=== PATIENT | female | born 1965 | race Caucasian/White ===

== ENCOUNTER 2019-05-28 10:41 | Emergency (ER) | payer OTHER ==
--- NOTE | 2019-05-28 10:57 | ER Document Report ---
ED Medical Screen (RME) - General Chief Complaint: Lower Abdominal Pain Stated Complaint: LOWER ABDOMINAL PAIN Time Seen by Provider: 05/28/19 10:52 Mode of Arrival: Ambulatory Information source: Patient Notes: 54-year-old female presented to ED for complaint of a sharp stabbing pain to the right lower quadrant for the last 3 days constantly. She states sometimes it does get worse but it is a constant pain. She states she has not had any fever or nausea or vomiting she usually has 2 stools a day but she is only been having 1 stool a day. Does have a history of hypoactive thyroid and depression she does have her gallbladder removed and a bilateral tubal ligation. She rarely drinks smokes about 6 cigarettes a day and does not use any illicit drugs. She is alert oriented respirations regular nonlabored speaking in full sentences. Abdomen is tender to palpation on right lower quadrant. Bowel sounds are active. I have greeted and performed a rapid initial assessment of this patient. A comprehensive ED assessment and evaluation of the patient, analysis of test results and completion of medical decision making process will be conducted by an additional ED providers. Physical Exam - Vital signs Vitals: Temp Pulse Resp BP Pulse Ox 97.5 F 66 16 131/57 H 98 05/28/19 10:45 05/28/19 10:45 05/28/19 10:45 05/28/19 10:45 05/28/19 10:45 Course - Vital Signs Vital signs: Temp Pulse Resp BP Pulse Ox 97.5 F 66 16 131/57 H 98 05/28/19 10:45 05/28/19 10:45 05/28/19 10:45 05/28/19 10:45 05/28/19 10:45
[2019-05-28 11:30] LABS: ABSOLUTE BASOPHILS # (AUTO) 0.1 10^3/uL (0.0-0.2); ABSOLUTE EOSINOPHILS # (AUTO) 0.2 10^3/uL (0.0-0.6); ABSOLUTE LYMPHOCYTES (AUTO) 1.3 10^3/uL (0.5-4.7); ABSOLUTE MONOCYTES (AUTO) 0.5 10^3/uL (0.1-1.4); BASOPHILS % (AUTO) 0.9 % (0-2); HEMATOCRIT 41.7 % (36.0-47.0); LYMPHOCYTES % (AUTO) 20.9 % (13-45); MEAN CORPUSCULAR HEMOGLOBIN 28.6 pg (27.0-33.4); MEAN CORPUSCULAR HGB CONC 33.7 g/dL (32.0-36.0); MEAN CORPUSCULAR VOLUME 85 fl (80-97); MONOCYTES % (AUTO) 8.8 % (3-13); PLATELET COUNT 279 10^3/uL (150-450); SEGMENTED NEUTROPHILS % (AUTO) 66.4 % (42-78); TOTAL CELLS COUNTED % (AUTO) 100 %; WHITE BLOOD COUNT 6.1 10^3/uL (4.0-10.5)
[2019-05-28 11:48] LABS: ALBUMIN 4.1 g/dL (3.5-5.0); ALKALINE PHOSPHATASE 71 U/L (38-126); ANION GAP 6 (5-19); ASPARTATE AMINO TRANSFERASE 20 U/L (14-36); BILIRUBIN,DIRECT 0.1 mg/dL (0.0-0.4); BILIRUBIN,TOTAL 0.5 mg/dL (0.2-1.3); BLOOD UREA NITROGEN 14 mg/dL (7-20); CALCIUM 9.5 mg/dL (8.4-10.2); CARBON DIOXIDE 28 mmol/L (22-30); CHLORIDE 107 mmol/L (98-107); GLUCOSE 92 mg/dL (75-110); POTASSIUM 4.7 mmol/L (3.6-5.0); TOTAL PROTEIN 7.2 g/dL (6.3-8.2)
[2019-05-28 11:49] LABS: APPEARANCE,URINE CLEAR; BILIRUBIN,URINE NEGATIVE (NEGATIVE); COLOR,URINE YELLOW; GLUCOSE, URINE NEGATIVE (NEGATIVE); KETONES,URINE NEGATIVE (NEGATIVE); PROTEIN,URINE NEGATIVE (NEGATIVE); URINE SPECIFIC GRAVITY 1.005; UROBILINOGEN,URINE NEGATIVE mg/dL (<2.0)
--- NOTE | 2019-05-28 12:48 | ER Document Report ---
ED General - General Chief Complaint: Abdominal Pain Stated Complaint: LOWER ABDOMINAL PAIN Time Seen by Provider: 05/28/19 10:52 Primary Care Provider: ROBERT OLIVAS [Primary Care Provider] - Follow up in 1 week Mode of Arrival: Ambulatory Information source: Patient Notes: 54-year-old female presents emergency department with complaints of right lower quad abdominal pain since Monday. Reports her right side hurts all the time but she experiences episodes of sharp pain. Reports she is been eating and drinking as normal. Denies fever and vomiting being but reports diarrhea since Monday. Reports her stool was soft this morning. reports she was very pale this morning. - HPI Onset: Other - monday Onset/Duration: Persistent Quality of pain: Achy, Sharp Associated symptoms: Diarrhea Exacerbated by: Denies Relieved by: Denies Similar symptoms previously: No Recently seen / treated by doctor: No - Related Data Allergies/Adverse Reactions: No Known Allergies Allergy (Unverified 05/28/19 13:45) Past Medical History - General Information source: Patient Last Menstrual Period: Menopause for the past 2 years - Social History Smoking Status: Current Every Day Smoker Frequency of alcohol use: None Drug Abuse: None Lives with: Family Family History: None Patient has suicidal ideation: No Patient has homicidal ideation: No Endocrine Medical History: Reports: Hx Hypothyroidism Psychiatric Medical History: Reports: Hx Depression Past Surgical History: Reports: Hx Cholecystectomy, Hx Tonsillectomy, Hx Tubal Ligation Review of Systems - Review of Systems Notes: Review HPI for review of systems., All other systems negative Physical Exam - Vital signs Vitals: Temp Pulse Resp BP Pulse Ox 97.5 F 66 16 131/57 H 98 05/28/19 10:45 05/28/19 10:45 05/28/19 10:45 05/28/19 10:45 05/28/19 10:45 - Notes Notes: PHYSICAL EXAMINATION: GENERAL: Well-appearing and in no acute distress HEAD: Atraumatic, normocephalic. EYES: Pupils equal round and reactive to light, extraocular movements intact, sclera anicteric, conjunctiva are normal. ENT: nares patent, oropharynx clear without exudates. Moist mucous membranes. NECK: Normal range of motion, supple without lymphadenopathy LUNGS: CTAB and equal. No wheezes rales or rhonchi. HEART: Regular rate and rhythm without murmurs ABDOMEN: Soft, RLQ tenderness. No guarding, no rebound BACK: Denies flank pain EXTREMITIES: Normal range of motion, no pitting edema. NEUROLOGICAL: Cranial nerves grossly intact. Normal sensory/motor exams. PSYCH: Normal mood, normal affect. SKIN: Warm, Dry, normal turgor, no rashes or lesions noted Course - Re-evaluation Re-evalutation: 05/28/19 12:46 54-year-old female presents emergency department with complaints of right lower quad abdominal pain that started on Monday. Reports constant ache with episodes of sharp pain. Reports she is been eating drinking as normal. Denies fever vomiting reports some diarrhea. Reports last stool this morning was soft. Labs unremarkable. 05/28/19 13:51 Labs unremarkable UA negative CT unremarkable. Patient was instructed on diarrhea [id number] antidiarrhea medication. She was instructed on the [facility] and return to ED for concerns. Verbalized understanding to all instructions. Patient looks nontoxic smiles and laughs easily. Abdomen/Pelvis CT 05/28/19 12:42 IMPRESSION: 1. No acute CT findings of the abdomen or pelvis to explain right lower quadrant abdominal pain. Normal appendix. 2. Status post cholecystectomy. 05/28/19 20:01 Dictation of this chart was performed using voice recognition software; therefore, there may be some unintended grammatical errors. - Vital Signs Vital signs: Temp Pulse Resp BP Pulse Ox 98.0 F 62 18 115/68 96 05/28/19 14:09 05/28/19 14:09 05/28/19 14:09 05/28/19 14:09 05/28/19 14:09 - Laboratory Result Diagrams: 05/28/19 11:06 05/28/19 11:06 Laboratory results interpreted by me: 05/28/19 11:25 Urine Blood SMALL H - Diagnostic Test Radiology reviewed: Image reviewed, Reports reviewed Discharge - Discharge Clinical Impression: Abdominal pain Qualifiers: Abdominal location: right lower quadrant Qualified Code(s): R10.31 - Right lower quadrant pain Diarrhea Qualifiers: Diarrhea type: unspecified type Qualified Code(s): R19.7 - Diarrhea, unspecified Condition: Stable Disposition: HOME, SELF-CARE Instructions: Abdominal Pain ([facility]), Diarrhea, Nonspecific ([facility]), Observation for Appendicitis ([facility]), OTC Antidiarrhea Medication ([facility]), Toradol Injection ([facility]) Additional Instructions: *You have been evaluated for abdominal pain, diarrhea *Take antidiarrhea medication as dictated *Follow up with a primary care provider within 1 week for recheck *Return to ED for worsening condition, changes, needs *Return to ED if not better in 24 hours Forms: Return to Work Referrals: [facility] [[facility]] - Follow up in 1 week
[2019-05-28] MEDS ORDERED: KETOROLAC TROMETHAMINE INJ/PF 30 MG/1 ML SDV IV ONE (13:11)
--- NOTE | 2019-05-28 13:37 | RADIOLOGY REPORT (SQ) ---
EXAM DESCRIPTION: CT ABD/PELVIS WITH IV ONLY COMPLETED DATE/TIME: 05/28/2019 1:20 pm REASON FOR STUDY: RLQ pain COMPARISON: None. TECHNIQUE: CT scan of the abdomen and pelvis performed using helical scanning technique with dynamic intravenous contrast injection. No oral contrast. Images reviewed with lung, soft tissue, and bone windows. Reconstructed coronal and sagittal MPR images reviewed. Delayed images for evaluation of the urinary system also acquired. All images stored on PACS. All CT scanners at this facility use dose modulation, iterative reconstruction, and/or weight based d osing when appropriate to reduce radiation dose to as low as reasonably achievable (ALARA). [facility]: Dose Right [facility]: CareDose [facility]: Dose Right [facility]: Teradose 4D [facility]: [employer] CONTRAST TYPE AND DOSE: contrast/concentration: Isovue 350.00 mg/ml; Total Contrast Delivered: 100.0 ml; Total Saline Delivered: 72.0 ml RENAL FUNCTION: GFR > 60. RADIATION DOSE: CT Rad equipment meets quality standard of care and radiation dose reduction techniq ues were employed. CTDIvol: 20.5 - 21.1 mGy. DLP: 2344 mGy-cm.. LIMITATIONS: None. FINDINGS: LOWER CHEST: No significant findings. No nodules or infiltrates. LIVER: Normal size. No masses. No dilated ducts. SPLEEN: Normal size. No focal lesions. PANCREAS: No masses. No significant calcifications. No adjacent inflammation or peripancreatic fluid collections. Pancreatic duct not dilated. GALLBLADDER: Surgically absent. ADRENAL GLANDS: No significant masses or asymmetry. RIGHT KIDNEY AND URETER: No solid masses. No significant calcifications. No hydronephrosis or hyd roureter. LEFT KIDNEY AND URETER: No solid masses. No significant calcifications. No hydronephrosis or hydr oureter. AORTA AND VESSELS: No aneurysm. No dissection. Renal arteries, SMA, celiac without stenosis. RETROPERITONEUM: No retroperitoneal adenopathy, hemorrhage or masses. BOWEL AND PERITONEAL CAVITY: No masses or inflammatory changes. No free fluid or peritoneal masses. APPENDIX: Normal. PELVIS: No mass. No free fluid. Normal bladder. ABDOMINAL WALL: No masses. No hernias. BONES: No significant or acute findings. OTHER: No other significant finding. IMPRESSION: 1. No acute CT findings of the abdomen or pelvis to explain right lower quadrant abdomin al pain. Normal appendix. 2. Status post cholecystectomy. TECHNICAL DOCUMENTATION: JOB ID: [id number] Quality ID # [id number]: Final reports with documentation of one or more dose reduction techniques (e.g., Au tomated exposure control, adjustment of the mA and/or kV according to patient size, use of iterative reconstruction technique) 2010 [employer]- All Rights Reserved Reading location - IP/workstation name: [email or web address]
[2019-05-28 14:09] VITALS: BP 115/68
== END 2019-05-28 14:09 | disposition home or self-care (01) ==
LOC: ER 10:41
DX: R10.31 Right lower quadrant pain (principal); R19.7 Diarrhea, unspecified; F17.200 Nicotine dependence, unspecified, uncomplicated
CPT/HCPCS: 99284; 96374; 36415; 83690; 85025; 80053; 81001; 74177; J1885

== ENCOUNTER 2019-10-05 14:44 | Emergency (ER) | payer OTHER ==
[2019-10-05] MEDS ORDERED: OXYCODONE-ACETAMINOPHEN 5-325 MG TABLET PO ONE (16:07)
--- NOTE | 2019-10-05 16:15 | ER Document Report ---
ED Medical Screen (RME) - General Chief Complaint: Fall Injury Stated Complaint: FALL/LEG PAIN Time Seen by Provider: 10/05/19 16:07 Primary Care Provider: NICOLE MAGUIRE MD [ACTIVE PROVISIONAL STAFF] - Follow up as needed [facility] [[facility]] - Follow up as needed Mode of Arrival: Wheelchair Information source: Patient Notes: 54-year-old female presented to ED for pain swelling injury to the left leg. She states she fell on 09/24 landing on her knee with pain from her hip to her ankle swelling and bruising from her hip to her ankle. She states for the last 10 days she is tried elevating and icing her leg and knee but the pain and swelling has continued to increase. She is here today to find out if there is anything else she needs to do to this leg. She has been treated with Percocet in the pit area and x-rays have been ordered. I have greeted and performed a rapid initial assessment of this patient. A comprehensive ED assessment and evaluation of the patient, analysis of test results and completion of medical decision making process will be conducted by an additional ED providers. - Related Data Allergies/Adverse Reactions: No Known Allergies Allergy (Unverified 05/28/19 13:45) Past Medical History Endocrine Medical History: Reports: Hx Hypothyroidism Psychiatric Medical History: Reports: Hx Depression Past Surgical History: Reports: Hx Cholecystectomy, Hx Tonsillectomy, Hx Tubal Ligation Physical Exam - Vital signs Vitals: Temp Pulse Resp BP Pulse Ox 97.6 F 70 20 129/71 H 99 10/05/19 14:54 10/05/19 14:54 10/05/19 14:54 10/05/19 14:54 10/05/19 14:54 Course - Vital Signs Vital signs: Temp Pulse Resp BP Pulse Ox 97.8 F 79 18 135/64 H 100 10/05/19 19:25 10/05/19 19:25 10/05/19 19:25 10/05/19 19:25 10/05/19 19:25 Doctor's Discharge - Discharge Clinical Impression: Contusion of left lower leg Condition: Stable Disposition: HOME, SELF-CARE Instructions: Use of Crutches ([facility]), Ice & Elevation ([facility]), Suspected Internal Knee Injury ([facility]), Knee Immobilizing Splint ([facility]) Additional Instructions: Contusion Your injury has resulted in a contusion -- a crushing of the deep tissues. No injury to important structures was detected during the physician's exam. Contusions vary in the amount of pain they cause, and in the length of time required for healing. Typically, the area will become bruised, and will remain painful to touch for two or three weeks. However, most patients are back to working and playing within a few days. After the initial period of rest and cold-packs, your symptoms (together with the doctor's recommendations) will determine how rapidly you can get back to full activity. Usually this means "do what feels okay, but don't do things that hurt." If re-examination was recommended, it's important to follow up as instructed. Call the doctor or return any time if pain increases, if swelling becomes severe, if you develop numbness or weakness in an injured extremity, or if any other alarming symptoms occur.Knee Immobilizing Splint The knee immobilizing splint will protect the injury while healing begins. This type of splint does not allow the knee to bend at all. No running or sports will be possible. If the splint allows painfree walking, it's giving adequate protection. If there is still significant pain, crutches may be needed as well. Don't do anything that hurts. Adjusted the splint, if necessary. The stiffeners on the sides are attached with Velcro, so they can be easily moved to adjust for thigh and calf size. If you need help with these adjustments, come back. You will lose muscle strength in the thigh while using this splint. The do ctor will advise you if it's safe to do isometric knee exercises while you use it. If pain swelling improves you may not need to follow-up with orthopedic doctor however if your problems persist please follow-up with the orthopedic doctor that we list as follow-up for you thank you meanwhile I can want you to continue ibuprofen 800 mg 3 times a day if needed with meals and also take Tylenol 1000 m g twice a day if you still have pain that persists. Referrals: NICOLE MAGUIRE MD [ACTIVE PROVISIONAL STAFF] - Follow up as needed [facility] [[facility]] - Follow up as needed
--- NOTE | 2019-10-05 16:44 | RADIOLOGY REPORT (SQ) ---
EXAM DESCRIPTION: FEMUR LEFT IMAGES COMPLETED DATE/TIME: 10/05/2019 3:33 pm REASON FOR STUDY: Pain injury swelling COMPARISON: None. NUMBER OF VIEWS: Two views. TECHNIQUE: Two radiographic images acquired of the left femur to include hip and knee in at least on e projection. LIMITATIONS: None. FINDINGS: MINERALIZATION: Normal. BONES: No acute fracture. No worrisome bone lesions. SOFT TISSUES: No obvious swelling or foreign body. OTHER: No other significant finding. IMPRESSION: NEGATIVE STUDY OF THE LEFT FEMUR. NO RADIOGRAPHIC EVIDENCE OF ACUTE INJURY. TECHNICAL DOCUMENTATION: JOB ID: [id number] 2010 [employer]- All Rights Reserved Reading location - IP/workstation name: [email or web address]
--- NOTE | 2019-10-05 16:45 | RADIOLOGY REPORT (SQ) ---
EXAM DESCRIPTION: TIBIA FIBULA LEFT IMAGES COMPLETED DATE/TIME: 10/05/2019 3:33 pm REASON FOR STUDY: Pain injury swelling COMPARISON: None. NUMBER OF VIEWS: Two views. TECHNIQUE: Two radiographic images acquired of the left tibia and fibula to include the knee and ank le in at least one projection. LIMITATIONS: None. FINDINGS: MINERALIZATION: Normal. BONES: No acute fracture or dislocation. No worrisome bone lesions. SOFT TISSUES: No obvious swelling or foreign body. OTHER: No other significant finding. IMPRESSION: NEGATIVE STUDY OF THE LEFT TIBIA AND FIBULA. NO RADIOGRAPHIC EVIDENCE OF ACUTE INJURY. TECHNICAL DOCUMENTATION: JOB ID: [id number] 2010 [employer]- All Rights Reserved Reading location - IP/workstation name: [email or web address]
--- NOTE | 2019-10-05 16:46 | RADIOLOGY REPORT (SQ) ---
EXAM DESCRIPTION: KNEE LEFT 4 VIEW IMAGES COMPLETED DATE/TIME: 10/05/2019 3:33 pm REASON FOR STUDY: Pain injury swelling COMPARISON: None. NUMBER OF VIEWS: Four views. TECHNIQUE: AP, lateral, and both oblique radiographic images acquired of the left knee. LIMITATIONS: None. FINDINGS: MINERALIZATION: Normal. BONES: No acute fracture or dislocation. No worrisome bone lesions. Small marginal osteophytes at t he medial and lateral compartment and patellofemoral joint space. JOINT: No joint effusion. No intra-articular loose body. SOFT TISSUES: No soft tissue swelling. No radio-opaque foreign body. OTHER: No other significant finding. IMPRESSION: No acute fracture or dislocation of the left knee. Mild tricompartmental osteoarthritis . TECHNICAL DOCUMENTATION: JOB ID: [id number] 2010 [employer]- All Rights Reserved Reading location - IP/workstation name: [email or web address]
[2019-10-05] MEDS ORDERED: ACETAMINOPHEN 325 MG TABLET PO ONE (18:24)
--- NOTE | 2019-10-05 19:02 | ER Document Report ---
Entered by TAY HANCOCK SCRIBE 10/05/19 1716 Acting as scribe for:CHU LAL MD ED General - General Chief Complaint: Knee Pain Stated Complaint: FALL/LEG PAIN Time Seen by Provider: 10/05/19 16:07 Primary Care Provider: NICOLE MAGUIRE MD [ACTIVE PROVISIONAL STAFF] - Follow up as needed [facility] [[facility] - Follow up as needed Mode of Arrival: Wheelchair Information source: Patient Notes: This 54 year old female patient presents to the emergency department today with pain in her left knee from a recent fall. Patient states she was walking her dog x10 days ago when he pulled her and she fell to her knees. Patient states she was dragged by her dog and there was immediate swelling of her left knee. Patient states she iced her knee and kept it elevated. Patient states she is able to hop around with her knee and she has not lost any feeling in her foot. Patient states there is pain in her left knee, it is bruised, and she is barely able to bend her knee. Patient states she has recently moved here from [place] x5 months ago. - Related Data Allergies/Adverse Reactions: No Known Allergies Allergy (Unverified 05/28/19 13:45) Past Medical History - General Information source: Patient - Social History Smoking Status: Former Smoker Cigarette use (# per day): No Lives with: Family Family History: None Patient has suicidal ideation: No Patient has homicidal ideation: No Endocrine Medical History: Reports: Hx Hypothyroidism Psychiatric Medical History: Reports: Hx Depression Past Surgical History: Reports: Hx Cholecystectomy, Hx Tonsillectomy, Hx Tubal L igation Review of Systems - Review of Systems Constitutional: No symptoms reported EENT: No symptoms reported Cardiovascular: No symptoms reported Respiratory: No symptoms reported Gastrointestinal: No symptoms reported Genitourinary: No symptoms reported Female Genitourinary: No symptoms reported Musculoskeletal: See HPI, Other - Pain in left knee with bruising and swelling. Skin: No symptoms reported Hematologic/Lymphatic: No symptoms reported Neurological/Psychological: No symptoms reported -: Yes All other systems reviewed and negative Physical Exam - Vital signs Vitals: Temp Pulse Resp BP Pulse Ox 97.6 F 70 20 129/71 H 99 10/05/19 14:54 10/05/19 14:54 10/05/19 14:54 10/05/19 14:54 10/05/19 14:54 - General General appearance: Appears well, Alert - HEENT Head: Normocephalic, Atraumatic Eyes: Normal Pupils: PERRL - Respiratory Respiratory status: No respiratory distress Chest status: Nontender Breath sounds: Normal Chest palpation: Normal - Cardiovascular Rhythm: Regular Heart sounds: Normal auscultation Murmur: No - Abdominal Inspection: Normal Distension: No distension Bowel sounds: Normal Tenderness: Nontender - Extremities General upper extremity: Normal inspection. No: Edema General lower extremity: Other - Ecchymosis of the supra knee down the lateral fibula to the ankle. Soft tissue swelling. No open wounds. - Neurological Neuro grossly intact: Yes Cognition: Normal Orientation: AAOx4 - Psychological Associated symptoms: Normal affect, Normal mood - Skin Skin Temperature: Warm Skin Moisture: Dry Skin Color: Normal Course - Re-evaluation Re-evalutation: 10/05/19 18:28 Patient resting comfortably not showing any signs of distress right now. - Vital Signs Vital signs: Temp Pulse Resp BP Pulse Ox 97.6 F 70 20 129/71 H 99 10/05/19 14:54 10/05/19 14:54 10/05/19 14:54 10/05/19 14:54 10/05/19 14:54 - Diagnostic Test Radiology reviewed: Image reviewed, Reports reviewed Radiology results interpreted by me: 10/05/19 18:2 Left femur no fracture Left knee no fracture, osteoarthritis noted tricompartment of the left knee. Left tib-fib no fracture soft tissue swelling noted. Discharge - Discharge Clinical Impression: Contusion of left lower leg Condition: Stable Disposition: HOME, SELF-CARE Instructions: Use of Crutches ([facility]), Ice & Elevation ([facility]), Suspected Internal Knee Injury ([facility]), Knee Immobilizing Splint ([facility]) Additional Instructions: Contusion Your injury has resulted in a contusion -- a crushing of the deep tissues. No injury to important structures was detected during the physician's exam. Contusions vary in the amount of pain they cause, and in the length of time required for healing. Typically, the area will become bruised, and will remain painful to touch for two or three weeks. However, most patients are back to working and playing within a few days. After the initial period of rest and cold-packs, your symptoms (together with the doctor's recommendations) will determine how rapidly you can get back to full activity. Usually this means "do what feels okay, but don't do things that hurt." If re-examination was recommended, it's important to follow up as instructed. Call the doctor or return any time if pain increases, if swelling becomes severe, if you develop numbness or weakness in an injured extremity, or if any other alarming symptoms occur.Knee Immobilizing Splint The knee immobilizing splint will protect the injury while healing begins. This type of splint does not allow the knee to bend at all. No running or sports will be possible. If the splint allows painfree walking, it's giving adequate protection. If there is still significant pain, crutches may be needed as well. Don't do anything that hurts. Adjusted the splint, if necessary. The stiffeners on the sides are attached with Velcro, so they can be easily moved to adjust for thigh and calf size. If you need help with these adjustments, come back. You will lose muscle strength in the thigh while using this splint. The doctor will advise you if it's safe to do isometric knee exercises while you use it. If pain swelling improves you may not need to follow-up with orthopedic doctor however if your problems persist please follow-up with the orthopedic doctor that we list as follow-up for you thank you meanwhile I can want you to continue ibuprofen 800 mg 3 times a day if needed with meals and also take Tylenol 1000 mg twice a day if you still have pain that persists. Referrals: [facility] [[facility]] - Follow up as needed NICOLE MAGUIRE MD [ACTIVE PROVISIONAL STAFF] - Follow up as needed I personally performed the services described in the documentation, reviewed and edited the documentation which was dictated to the scribe in my presence, and it accurately records my words and actions.
[2019-10-05 19:27] VITALS: BP 135/64
== END 2019-10-05 19:05 | disposition home or self-care (01) ==
LOC: ER 14:44
DX: S80.12XA Contusion of left lower leg, initial encounter (principal); W19.XXXA Unspecified fall, initial encounter; E03.9 Hypothyroidism, unspecified; Z90.49 Acquired absence of other specified parts of digestive tract; Z98.51 Tubal ligation status
CPT/HCPCS: 99283